=== PATIENT | female | born 1985 | race Caucasian/White ===

== ENCOUNTER 2022-03-18 20:42 | Emergency (ER) | payer SELFPAY | END 2022-03-18 22:39 | LOC: JD.ED 20:42 | DX: Z53.21 Procedure and treatment not carried out due to patient leaving prior to being seen by health care provider (principal) ==

== ENCOUNTER 2022-03-20 01:18 | Emergency (ER) | payer SELFPAY ==
[2022-03-20 02:59] LABS: CORONAVIRUS COVID-19 NAA NEGATIVE (NEGATIVE)
== END 2022-03-20 04:10 | disposition home or self-care (01) ==
LOC: JD.ED 01:18
DX: M79.671 Pain in right foot (principal); J06.9 Acute upper respiratory infection, unspecified; F17.210 Nicotine dependence, cigarettes, uncomplicated; Z88.5 Allergy status to narcotic agent; Z88.8 Allergy status to other drugs, medicaments and biological substances; Z86.16 Personal history of COVID-19; Z20.822 Contact with and (suspected) exposure to COVID-19; W22.09XA Striking against other stationary object, initial encounter
CPT/HCPCS: 0241U; 71046; 73630; 99283

== ENCOUNTER 2022-03-20 15:11 | Emergency (ER) | payer SELFPAY ==
[2022-03-20] MEDS ORDERED: ClonazePAM 1 MG Tab PO ONE (15:55)
[2022-03-20 19:01] LABS: C. TRACHOMATIS BY PCR NOT DETECTED; N. GONORRHOEAE BY PCR NOT DETECTED
== END 2022-03-20 17:27 | disposition other institution (70) ==
LOC: JD.ED 15:11
DX: M25.571 Pain in right ankle and joints of right foot (principal); Z20.2 Contact with and (suspected) exposure to infections with a predominantly sexual mode of transmission; Z88.5 Allergy status to narcotic agent; Z88.8 Allergy status to other drugs, medicaments and biological substances; Z86.16 Personal history of COVID-19
CPT/HCPCS: 36415; 81025; 87449; 87491; 87591; 99284; A9270; G0433